=== PATIENT | male | born 1960 | race Caucasian/White ===

== ENCOUNTER 2021-09-21 17:20 | Inpatient (IN) | payer MEDICARE, MEDICAID ==
[~2021-09-21] VITALS: Ht 182.9 cm; Wt 127.0 kg
[2021-09-21] MEDS ORDERED: ONDANSETRON HCL 4MG/2ML INJ IV STA (19:15)
[2021-09-21] MEDS ORDERED: SODIUM CHLORIDE 0.9% 1,000 ML IV ONE (19:15)
[2021-09-21] MEDS ORDERED: MORPHINE SULFATE 4 MG/ML CPJ (NOT FOR IM USE) IV STA (19:15)
[2021-09-21 19:25] LABS: CHLORIDE 91 mEq/L (98-107)
[2021-09-21 19:28] LABS: HEMATOCRIT. 29.3 % (42.0-52.0); HEMOGLOBIN. 9.3 g/dL (14.0-18.0); MEAN CORPUSCULAR HEMOGLOBIN 26.5 pg (28.0-32.0); MEAN CORPUSCULAR VOLUME 83.5 fL (80.0-94.0); MEAN PLATELET VOLUME 9.1 fl (7.4-10.4); PLATELET 283 x1000/uL (130-400); RED BLOOD CELL COUNT 3.51 mill/uL (4.7-6.1); RED CELL DISTRIBUTION WIDTH 14.6 % (11.6-14.6)
[2021-09-21 20:03] LABS: PLATELET ESTIMATE NORMAL
[2021-09-21] MEDS ORDERED: PIPERACILLIN/TAZ 3.375G PREMIX 50 ML IV ONE (21:00)
[2021-09-21] MEDS ORDERED: VANCOMYCIN 1G PREMIX 200 ML IV ONE (21:00)
[2021-09-22 05:00] VITALS: BP 139/74
[2021-09-22] MEDS ORDERED: ONDANSETRON HCL 4MG/2ML INJ IV PRN (05:45)
[2021-09-22] MEDS ORDERED: DEXTROSE 50% WATER 50ML SYRINGE IV PRN (05:45)
[2021-09-22 05:56] LABS: CLARITY URINE CLEAR (CLEAR); COLOR URINE YELLOW (YELLOW); KETONES URINE NEGATIVE (NEGATIVE); LEUKOCYTE ESTERASE URINE 1+ (NEGATIVE); NITRITE URINE NEGATIVE (NEGATIVE); OCCULT BLOOD URINE 3+ (NEGATIVE); PH URINE 5.5 (4.5-8.0); PROTEIN URINE 3+ (NEGATIVE); SPECIFIC GRAVITY URINE 1.013 (1.005-1.030); UROBILINOGEN URINE 0.2 E.U./dL (0.2-1.0)
[2021-09-22] MEDS: INSULIN LISPRO 100 UNITS/ML SUBCUT SCH ×4 (06:27→20:37)
[2021-09-22] MEDS: PANTOPRAZOLE 40MG DR TABLET PO SCH (06:27)
[2021-09-22] MEDS: BLOOD SUGAR DIAGNOSTIC STRIP TEST SCH ×4 (06:27→20:37)
[2021-09-22 08:00] VITALS: BP 141/76
[2021-09-22] MEDS: PIPERACILLIN/TAZOBACTAM 3.375G in DEXT 5% WATER 50ML IV SCH ×3 (08:23→21:36)
[2021-09-22] MEDS ORDERED: PIPERACILLIN/TAZOBACTAM 3.375 G in DEXTROSE 5% WATER 50 ML IV SCH (09:00)
[2021-09-22] MEDS ORDERED: INSULIN GLARGINE UD 100 UNITS/ML SYR SUBCUT SCH (10:00)
[2021-09-22 11:43] LABS: HEMATOCRIT. 26.9 % (42.0-52.0); HEMOGLOBIN. 8.6 g/dL (14.0-18.0); MEAN CORPUSCULAR HEMOGLOBIN 26.3 pg (28.0-32.0); MEAN CORPUSCULAR VOLUME 82.7 fL (80.0-94.0); MEAN PLATELET VOLUME 9.1 fl (7.4-10.4); PLATELET 224 x1000/uL (130-400); RED BLOOD CELL COUNT 3.25 mill/uL (4.7-6.1); RED CELL DISTRIBUTION WIDTH 14.9 % (11.6-14.6)
[2021-09-22 12:00] VITALS: BP 145/74
[2021-09-22 12:19] LABS: PLATELET ESTIMATE NORMAL
[2021-09-22 16:00] VITALS: BP 156/80
[2021-09-22] MEDS ORDERED: VANCOMYCIN 750MG PMX (XELLIA) 150 ML IV SCH (16:00)
[2021-09-22] MEDS ORDERED: VANCOMYCIN 1GM PMX (XELLIA) 200 ML IV SCH (16:00)
[2021-09-22] MEDS: ACETAMINOPHEN 650MG/20.3ML UDC PO PRN (17:46)
[2021-09-22 20:00] VITALS: BP 120/62
[2021-09-22] MEDS: ATORVASTATIN CALCIUM 40MG TABLET PO SCH (20:36)
[2021-09-22] MEDS: INSULIN GLARGINE UD 100 UNITS/ML SYR SUBCUT SCH (21:37)
[2021-09-22] MEDS ORDERED: BROM3DRO EACHEYE (23:29)
[2021-09-22] MEDS ORDERED: BUME1TAB8 MT (23:29)
[2021-09-22] MEDS ORDERED: ATOR20TA65 PO (23:29)
[2021-09-22] MEDS ORDERED: INSU100V37 SQ (23:29)
[2021-09-22] MEDS ORDERED: ASPI-1406 MT (23:29)
[2021-09-22] MEDS ORDERED: INSU100I24 SQ (23:29)
[2021-09-22] MEDS ORDERED: SODI10PO PO (23:29)
[2021-09-22] MEDS ORDERED: GABA-532 PO (23:29)
[2021-09-22] MEDS ORDERED: TAMS-11 PO (23:29)
[2021-09-22] MEDS ORDERED: DOCU100T PO (23:29)
[2021-09-22] MEDS ORDERED: NIFE-32 MT (23:29)
[2021-09-23] VITALS: BP 143/80
[2021-09-23] MEDS: ACETAMINOPHEN 650MG/20.3ML UDC PO PRN (02:50)
[2021-09-23 04:00] VITALS: BP 133/71
[2021-09-23] MEDS: PIPERACILLIN/TAZOBACTAM 3.375G in DEXT 5% WATER 50ML IV SCH ×3 (05:53→21:32)
[2021-09-23] MEDS: PANTOPRAZOLE 40MG DR TABLET PO SCH (06:18)
[2021-09-23] MEDS: INSULIN LISPRO 100 UNITS/ML SUBCUT SCH ×4 (06:19→21:16)
[2021-09-23] MEDS: BLOOD SUGAR DIAGNOSTIC STRIP TEST SCH ×4 (06:21→20:01)
[2021-09-23 07:23] LABS: BASOPHILS % 0.4 % (0.0-2.0); EOSINOPHILS % 1.1 % (0.0-5.0); HEMOGLOBIN. 8.4 g/dL (14.0-18.0); LYMPHOCYTES % 7.4 % (20.0-50.0); MEAN CORPUSCULAR HEMOGLOBIN 26.6 pg (28.0-32.0); MEAN CORPUSCULAR VOLUME 82.2 fL (80.0-94.0); MEAN PLATELET VOLUME 9.1 fl (7.4-10.4); MONOCYTES % 7.8 % (2.0-8.0); NEUTROPHILS % 83.3 % (40.0-76.0); PLATELET 220 x1000/uL (130-400); RED BLOOD CELL COUNT 3.16 mill/uL (4.7-6.1); RED CELL DISTRIBUTION WIDTH 14.5 % (11.6-14.6)
[2021-09-23 08:00] VITALS: BP 146/77
[2021-09-23] MEDS: INSULIN GLARGINE UD 100 UNITS/ML SYR SUBCUT SCH ×2 (09:27→21:16)
[2021-09-23 12:00] VITALS: BP 158/79
[2021-09-23] MEDS: NIFEDIPINE XL 30MG TAB PO SCH (15:34)
[2021-09-23 16:00] VITALS: BP 161/87
[2021-09-23] MEDS: HYDROCODONE/ACETAMINOPHEN 5/325MG TABLET PO PRN (17:03)
[2021-09-23] MEDS ORDERED: NALOXONE HCL 0.4MG/ML VIAL IV PRN (19:00)
[2021-09-23 20:00] VITALS: BP 138/74
[2021-09-23] MEDS: ATORVASTATIN CALCIUM 40MG TABLET PO SCH (21:10)
[2021-09-23] MEDS: GABAPENTIN 300MG CAPSULE PO SCH (21:10)
[2021-09-24] VITALS: BP 128/66
[2021-09-24 04:00] VITALS: BP 142/75
[2021-09-24] MEDS: BLOOD SUGAR DIAGNOSTIC STRIP TEST SCH ×2 (05:12→11:49)
[2021-09-24] MEDS: GABAPENTIN 300MG CAPSULE PO SCH ×2 (05:27→14:43)
[2021-09-24] MEDS: INSULIN LISPRO 100 UNITS/ML SUBCUT SCH ×2 (05:32→12:10)
[2021-09-24] MEDS: PIPERACILLIN/TAZOBACTAM 3.375G in DEXT 5% WATER 50ML IV SCH ×2 (05:50→14:42)
[2021-09-24 08:00] VITALS: BP 132/77
[2021-09-24] MEDS: NIFEDIPINE XL 30MG TAB PO SCH (08:08)
[2021-09-24 08:37] LABS: BASOPHILS % 0.5 % (0.0-2.0); EOSINOPHILS % 2.5 % (0.0-5.0); HEMATOCRIT. 27.2 % (42.0-52.0); HEMOGLOBIN. 8.9 g/dL (14.0-18.0); LYMPHOCYTES % 9.5 % (20.0-50.0); MEAN CORPUSCULAR HEMOGLOBIN 27.1 pg (28.0-32.0); MEAN CORPUSCULAR VOLUME 82.7 fL (80.0-94.0); MEAN PLATELET VOLUME 9.4 fl (7.4-10.4); MONOCYTES % 7.9 % (2.0-8.0); NEUTROPHILS % 79.6 % (40.0-76.0); PLATELET 235 x1000/uL (130-400); RED BLOOD CELL COUNT 3.29 mill/uL (4.7-6.1); RED CELL DISTRIBUTION WIDTH 14.5 % (11.6-14.6)
[2021-09-24] MEDS ORDERED: FAMOTIDINE 20MG TABLET PO SCH (09:00)
[2021-09-24] MEDS: INSULIN GLARGINE UD 100 UNITS/ML SYR SUBCUT SCH (09:26)
[2021-09-24] MEDS: HYDROCODONE/ACETAMINOPHEN 5/325MG TABLET PO PRN (09:42)
[2021-09-24 12:00] VITALS: BP 144/79
[2021-09-24] MEDS ORDERED: VANCOMYCIN 750MG PMX (XELLIA) 150 ML IV SCH (13:00)
[2021-09-24] MEDS ORDERED: TAMSULOSIN HCL 0.4MG SR CAPSULE PO SCH (13:30)
[2021-09-24] MEDS ORDERED: INSU100I28 SQ (13:31)
[2021-09-24] MEDS ORDERED: LEVO250T58 MT (13:31)
[2021-09-24 13:40] VITALS: BP 144/79
[2021-09-24 16:00] VITALS: BP 142/73
== END 2021-09-24 16:55 | disposition home or self-care (01) | DRG 871 ==
LOC: ER 17:20 → MICUSO 09-22 00:57 → 8WST 09-22 02:20
PROVIDERS: ADMIT Internal Medicine; ATTEND Internal Medicine
PROC: 3E1K78Z Irrigation of Genitourinary Tract using Irrigating Substance, Via Natural or Artificial Opening (ICD-10-PCS; 2021-09-21)
PROC: 3E1M39Z Irrigation of Peritoneal Cavity using Dialysate, Percutaneous Approach (ICD-10-PCS; principal; 2021-09-22)
DX: A41.9 Sepsis, unspecified organism (principal); N18.6 End stage renal disease; I12.0 Hypertensive chronic kidney disease with stage 5 chronic kidney disease or end stage renal disease; N12 Tubulo-interstitial nephritis, not specified as acute or chronic; E11.22 Type 2 diabetes mellitus with diabetic chronic kidney disease; E11.65 Type 2 diabetes mellitus with hyperglycemia; N40.0 Benign prostatic hyperplasia without lower urinary tract symptoms; Z20.822 Contact with and (suspected) exposure to COVID-19; M54.50 Low back pain, unspecified; E66.9 Obesity, unspecified; D64.9 Anemia, unspecified; E87.8 Other disorders of electrolyte and fluid balance, not elsewhere classified; Z99.2 Dependence on renal dialysis; Z68.38 Body mass index [BMI] 38.0-38.9, adult; Z71.3 Dietary counseling and surveillance; Z91.048 Other nonmedicinal substance allergy status
CPT/HCPCS: 36415; 71045; 72131; 74176; 80048; 80053; 80061; 80202; 81003; 82962; 83036; 83605; 83880; 84145; 84484; 85025; 86850; 86900; 87077; 87186; 87426; 93970; 99285; J1815; J2270; J2405; J2543; J3370; J7030; J7040; J7060; A4315

== ENCOUNTER 2023-06-25 16:59 | Emergency (ER) | payer MEDICARE, MEDICAID ==
[~2023-06-25] VITALS: Ht 182.9 cm; Wt 110.0 kg
[~2023-06-25 16:59] MED LIST: ASPI-1406 MT; ATOR20TA65 PO; BROM3DRO EACHEYE; BUME1TAB8 MT; DOCU100T PO; GABA-532 PO; INSU100I24 SQ; INSU100I28 SQ; INSU100V43 SQ; LEVO250T74 MT; NIFE-32 MT; SODI10PO PO; TAMS-11 PO
[2023-06-25 17:05] VITALS: BP 120/60; TEMP 98.6; O2SAT 94
[2023-06-25 17:22] VITALS: PULSE 107
[2023-06-25 18:25] LABS: BASOPHILS % 0.5 % (0.0-2.0); EOSINOPHILS % 0.5 % (0.0-5.0); HEMATOCRIT. 32.8 % (42.0-52.0); HEMOGLOBIN. 10.3 g/dL (14.0-18.0); MEAN CORPUSCULAR HEMOGLOBIN 28.4 pg (28.0-32.0); MEAN CORPUSCULAR HGB CONC 31.6 g/dL (31.0-37.0); MEAN CORPUSCULAR VOLUME 90.1 fL (80.0-94.0); MEAN PLATELET VOLUME 10.3 fl (7.4-10.4); MONOCYTES % 8.1 % (2.0-8.0); NEUTROPHILS % 76.9 % (40.0-76.0); PLATELET 195 x1000/uL (130-400); RED BLOOD CELL COUNT 3.64 mill/uL (4.7-6.1); RED CELL DISTRIBUTION WIDTH 14.3 % (11.6-14.6); WHITE BLOOD COUNT 9.9 x1000/uL (4.5-11.0)
[2023-06-25 18:33] LABS: INR 1.1; PROTHROMBIN TIME 11.4 sec (9.6-11.0)
[2023-06-25 18:39] LABS: ALANINE AMINOTRANSFERASE 12 IU/L (10-49); ALBUMIN 3.9 g/dL (3.2-4.8); ASPARTATE AMINOTRANSFERASE 11 IU/L (<34); BILIRUBIN TOTAL 0.6 mg/dL (0.1-1.0); CALCIUM 8.1 mg/dL (8.7-10.4); CARBON DIOXIDE 33 mEq/L (21-32); CHLORIDE 99 mEq/L (98-107); CREATININE 4.5 mg/dL (0.6-1.3); GLUCOSE 269 mg/dL (70-105); POTASSIUM 4.5 mEq/L (3.5-5.1); PROTEIN TOTAL 7.1 g/dL (6.0-8.3); SODIUM 137 mEq/L (136-145); UREA NITROGEN BLOOD 33 mg/dL (9-23)
[2023-06-25 18:41] LABS: TROPONIN I HIGH SENSITIVITY 94 ng/L (3.0-53)
[2023-06-25 20:53] LABS: BG BASE EXCESS 4.7 mmol/L (-2.0-2.0); BG CARBOXYHEMOGLOBIN 0.5 % (0.5-1.5); BG DEOXYHEMOGLOBIN 2.9 % (0.0-5.0); BG FRACTION INSPIRED OXYGEN 28; BG HCO3 ACT 29.2 mmol/L (22.0-26.0); BG METHEMOGLOBIN 0.1 % (0.0-1.5); BG OXYGEN SATURATION 97.1 % (92.0-98.5); BG OXYHEMOGLOBIN 96.5 % (94.0-97.0); BG PCO2 43.1 mmHg (35.0-45.0); BG PH 7.449 (7.350-7.450); BG PO2 95.3 mmHg (75.0-100.0); BG SAMPLE SITE RIGHT BRACHIAL; BG TOTAL HEMOGLOBIN 11.2 g/dL (12.0-18.0)
[2023-06-25 23:37] LABS: CLARITY URINE CLEAR (CLEAR); COLOR URINE YELLOW (YELLOW); GLUCOSE URINE 3+ (NEGATIVE); KETONES URINE NEGATIVE (NEGATIVE); LEUKOCYTE ESTERASE URINE NEGATIVE (NEGATIVE); NITRITE URINE NEGATIVE (NEGATIVE); OCCULT BLOOD URINE 1+ (NEGATIVE); PH URINE 6.5 (4.5-8.0); PROTEIN URINE 4+ (NEGATIVE); SPECIFIC GRAVITY URINE 1.024 (1.005-1.030); UROBILINOGEN URINE 0.2 E.U./dL (0.2-1.0)
[2023-06-26 00:31] LABS: BACTERIA URINE TRACE; RBC URINE NONE SEEN /hpf (0-2); SQUAMOUS EPITHELIAL CELL URINE FEW /lpf (RARE/1+); WBC URINE 0-2 /hpf (0-2)
== END 2023-06-25 20:10 | disposition home or self-care (01) ==
LOC: ER 16:59
DX: I12.9 Hypertensive chronic kidney disease with stage 1 through stage 4 chronic kidney disease, or unspecified chronic kidney disease (principal); E11.22 Type 2 diabetes mellitus with diabetic chronic kidney disease; N18.9 Chronic kidney disease, unspecified; R79.89 Other specified abnormal findings of blood chemistry
CPT/HCPCS: 36415; 36600; 71045; 80053; 81003; 82375; 82805; 83605; 83880; 84484; 85025; 93005; 99291